=== PATIENT | male | born 1965 | race Caucasian/White ===

== ENCOUNTER 2021-02-03 12:19 | Emergency (ER) | payer BC ==
[~2021-02-03] VITALS: Ht 172.7 cm; Wt 90.7 kg
[2021-02-03] MEDS ORDERED: RAMI5CAP30 PO (12:41)
[2021-02-03] MEDS ORDERED: ROSU20TA2 PO (12:41)
[2021-02-03] MEDS ORDERED: COREG PO (12:41)
[2021-02-03 13:04] LABS: HEMATOCRIT 44.3 % (36.7-47.1); MEAN CORPUSCULAR HEMOGLOBIN 31.5 uug (23.8-33.4); MEAN CORPUSCULAR VOLUME 90.4 fL (73.0-96.2); PLATELET COUNT (AUTO) 165 K/uL (152-348)
--- NOTE | 2021-02-03 13:13 | NUR ---
Patient is resting comfortably on gurney, calm, respiration:easy, nonlabored and even, pending results and disposition. Patient says that his facial numbness are "getting better."
[2021-02-03 13:20] LABS: CREATININE 0.7 mg/dL (0.6-1.3)
[2021-02-03 13:24] LABS: BILIRUBIN,DIRECT 0.1 mg/dL (0.0-0.2); BILIRUBIN,TOTAL 0.4 mg/dL (0.2-1.0); TOTAL PROTEIN, SERUM 7.7 g/dL (6.4-8.2)
--- NOTE | 2021-02-03 15:03 | NUR ---
Patient discharged to home in stable condition with brisk steady gait. Written and verbal after care instructions given to patient. Patient verbalized understanding and compliance of instructions. Stressed follow up with primary doctor and neurologist or return to ER for worsening s/s.
== END 2021-02-03 15:03 | disposition home or self-care (01) ==
LOC: ER 12:19
DX: R20.2 Paresthesia of skin (principal); R00.1 Bradycardia, unspecified; I25.2 Old myocardial infarction; I25.10 Atherosclerotic heart disease of native coronary artery without angina pectoris; F17.210 Nicotine dependence, cigarettes, uncomplicated
CPT/HCPCS: 36415; 70030-TC; 70450; 71045; 85025; 93005; A4663